=== PATIENT | female | born 1960 | race Caucasian/White ===

== ENCOUNTER 2016-10-01 08:20 | Day surgery (SDC) | payer OTHER ==
[2016-09-30 11:45] VITALS: BMI 18.7
[~2016-10-01] VITALS: Ht 165.1 cm; Wt 49.0 kg
[2016-10-01] VITALS (9 sets, daily range): BP systolic 106–134; BP diastolic 64–77; PULSE 66–75; RESP 8–21; Ht 165.1 cm; Wt 49.0 kg
[~2016-10-01 08:20] MED LIST: ASPI-664 PO; CIPRO 400 MG/200 ML D5W IVPB ONE; HYDR20TA19 PO; METH500T PO; RAMI10CA48 PO; SIMV5TAB50 PO
[2016-10-01] MEDS ORDERED: HYDR-902 PO (09:31)
[2016-10-01] MEDS ORDERED: OMEP20CA16 PO (09:31)
--- NOTE | 2016-10-01 09:43 | RADRPT ---
PROCEDURE: XR Chest. CLINICAL INDICATION: Preoperative TECHNIQUE: Single frontal chest x-ray. COMPARISON: None. FINDINGS: The lungs are clear of acute infiltrates, edema, effusions, or masses.. The cardiomediastinal silho uette is unremarkable. The osseous structures are intact. IMPRESSION: No acute cardiopulmonary disease. RPTAT: GG .Timothy Rodrigues MD, MD Date Time Electronically viewed and signed by .Timothy Rodrigues MD, MD on 10/01/2016 09:43 .L/
[2016-10-01] MEDS ORDERED: IOHEXOL 300MG/ML 30 ML BTL ONE (10:00)
[2016-10-01] MEDS ORDERED: MIDAZOLAM 1 MG/ML 2 ML INJ ONE (10:25)
[2016-10-01] MEDS ORDERED: FENTAnyl 50 MCG/ML VIAL ONE (10:26)
[2016-10-01] MEDS ORDERED: MEPERIDINE 25 MG INJ IV PRN (11:30)
[2016-10-01] MEDS ORDERED: DIPHENHYDRAMINE 50 MG INJ IV PRN (11:30)
[2016-10-01] MEDS ORDERED: ONDANSETRON 4 MG INJ IV PRN (11:30)
[2016-10-01] MEDS ORDERED: KETOROLAC 30 MG INJ IV ONE (11:30)
[2016-10-01] MEDS ORDERED: FENTAnyl 50 MCG/ML VIAL IV PRN (11:30)
[2016-10-01] MEDS ORDERED: LIDOCAINE 2% (SDV) 5 ML INJ ONE (12:14)
[2016-10-01] MEDS ORDERED: ROCURONIUM 50 MG INJ ONE (12:14)
[2016-10-01] MEDS ORDERED: PROPOFOL 20 ML ONE (12:14)
[2016-10-01] MEDS ORDERED: GLYCOPYRROLATE 0.4 MG INJ ONE (12:19)
[2016-10-01] MEDS ORDERED: ONDANSETRON 4 MG INJ ONE (12:19)
[2016-10-01] MEDS ORDERED: NEOSTIGMINE 3 MG/3 ML SYRINGE ONE (12:19)
[2016-10-01] MEDS: morphine (1 MG/ML) 10ML SYRINGE IV PRN ×2 (12:33→12:41)
--- NOTE | 2016-10-01 15:05 | RADRPT ---
PROCEDURE: Intraoperative imaging for ERCP with fluoroscopy. CLINICAL INDICATION: Right upper quadrant pain. Intraoperative. TECHNIQUE: Ninth images of the right upper quadrant of the abdomen were obtained in the operating room with an image intensifier. No radiologist was in attendance. Fluoroscopy time is unavailable. COMPARISON: 10/29/2015. FINDINGS: Images demonstrate the endoscope in position. Contrast was injected into the common bile duct. The common bile duct is dilated. No obstructing lesion is visualized. However, the distal duct is narr owed as seen previously. The cystic duct is patent. IMPRESSION: 1. ERCP as described above. RPTAT: QQ .Christiano Bah MD, MD Date Time Electronically viewed and signed by .Christiano Bah MD, MD on 10/01/2016 15:05 .R/
--- NOTE | 2016-10-01 19:02 | GILP ---
DATE OF PROCEDURE: PROCEDURE: ERCP, removal of the stent, SpyGlass biopsy, brushing, and placement of a stent, and als o balloon sweeping in order to remove the stone. INDICATION: A 56-year-old female undergoing this procedure for a stone fall on MRCP in the bile koffi t and also for the evaluation of the biliary stricture. The patient's CA19-9, which was normal 1 ye ar ago, has jumped to 401. The risk of the procedure, related and unrelated complications, anesthe tic risks, alternatives discussed. Informed consent was obtained. DESCRIPTION OF PROCEDURE: Patient was brought to the GI OR room 3, intubated and placed in a prone position, was given Indocin suppository and also Cipro, and after optimal sedation, the ERCP scope p assed with much ease into esophagus, advanced further down into stomach and duodenum. Two 10-[place] Citizen stents were removed in succession through the biopsy channel. Then, the bile duct was selectively c annulated. The distal part of the stricture visualized. It appeared clean and somewhat irregular. It was not a smooth stricture. At this point, we used a 12-mm balloon to sweep the bile duct. Harshad ething popped out, maybe a stone. But, after that, the whole biliary system was clean. The common d uct and the hepatic duct appeared dilated. Over the guidewire, we passed the SpyGlass, visualized t he common hepatic duct and bile duct. No stone was seen. The mucosa appeared normal. Higher, sanchez prabha, in the distal part of the bile duct, there were papillary projections identified. Five to 6 Sp y bites obtained and sent for analysis. After obtaining Spy bites, brushing was done, and after doi ng brushing, stent was deployed, 10-[place] Citizen, 5-cm. Total fluoro time was 7 seconds. Scope was remov ed with excellent patient tolerance. IMPRESSION: 1. Removal of two 10-[place] Citizen stents 1 x1. 2. Removal of probably stone from the bile duct with 12-mm balloon. 3. Irregular stricture in the distal part of the bile duct, probably 2 to 2.5 cm in length. 4. Spy bites obtained. 5. Papillary projection was visualized on SpyGlass. Rest of the common bile duct appeared normal. The mucosal lining was normal. 6. Brushing was done 7. Stent was successfully deployed, 10-[place] Citizen, 5 cm. PLAN: To review cytology and also the biopsy. I would prefer FISH study if the pathologist is angy ble of doing it. After reviewing all of this, will decide regarding the management, but I personall y feel patient needs the surgery, and I am going to refer her to hepatobiliary surgeon. Dictated By: LISETTE SANTOS/MICHEAL Conf#: [id number] DID#: [id number] CC: [facility];*EndCC*
== END 2016-10-01 13:40 | disposition home or self-care (01) ==
LOC: SDS 08:20
PROVIDERS: ATTEND Internal Medicine Gastroenterology
DX: K83.9 Disease of biliary tract, unspecified (principal); I25.10 Atherosclerotic heart disease of native coronary artery without angina pectoris; E78.5 Hyperlipidemia, unspecified; Z98.61 Coronary angioplasty status
CPT/HCPCS: 43277; 71010; 74330; 88104; 88305; 93005; C2617; J0744; J1885; J2250; J2270; J2405; J2710; J3010; Q9967; Z7512; Z7610

== ENCOUNTER 2017-04-13 08:59 | Day surgery (SDC) | payer OTHER ==
[2017-04-13] VITALS (9 sets, daily range): BP systolic 96–132; BP diastolic 69–81; PULSE 72–96; RESP 10–24; Ht 170.2 cm; Wt 52.3 kg
[~2017-04-13] VITALS: Ht 170.2 cm; Wt 52.3 kg
[~2017-04-13 08:59] MED LIST changes: -CIPRO 400 MG/200 ML D5W IVPB ONE; +HYDR-902 PO; -HYDR20TA19 PO; -METH500T PO; +OMEP20CA16 PO
[2017-04-13 10:17] LABS: BASOPHILS % 0.4 % (0.0-2.0); EOSINOPHILS % 0.4 % (0.0-7.0); HEMATOCRIT 35.8 % (37.0-47.0); HEMOGLOBIN 12.3 g/dl (12.0-16.0); LYMPHOCYTES # 1.6 10^3/ul (0.8-2.9); LYMPHOCYTES % 21.6 % (15.0-51.0); MEAN CORPUSCULAR HEMOGLOBIN 32.1 pg (29.0-33.0); MEAN CORPUSCULAR HGB CONC 34.4 g/dl (32.0-37.0); MEAN CORPUSCULAR VOLUME 93.5 fl (82.0-101.0); MEAN PLATELET VOLUME 8.9 fl (7.4-10.4); MONOCYTE # 0.5 10^3/ul (0.3-0.9); MONOCYTES % 6.4 % (0.0-11.0); NEUTROPHILS % 70.8 % (39.0-77.0); PLATELET COUNT 284 10^3/UL (140-415); RED BLOOD COUNT 3.83 10^6/ul (4.20-5.40); RED CELL DISTRIBUTION WIDTH 12.4 % (11.5-14.5); WHITE BLOOD COUNT 7.3 10^3/ul (4.8-10.8)
[2017-04-13] MEDS ORDERED: IOHEXOL 300MG/ML 30 ML BTL ONE ×2 (10:22→11:03)
--- NOTE | 2017-04-13 10:26 | HPN ---
Date/Time of Note Date/Time of Note DATE: 04/13/17 TIME: 10:26 Interval H&P Admission Note Pt. seen H&P reviewed: No system changes LISETTE CORTES MD Apr 13, 2017 10:26
[2017-04-13 10:44] LABS: CALCIUM 9.5 mg/dl (8.4-10.2); CREATININE 0.62 mg/dl (0.44-1.00); POTASSIUM 4.1 mmol/L (3.5-5.1)
--- NOTE | 2017-04-13 10:45 | RADRPT ---
PROCEDURE: XR Chest. CLINICAL INDICATION: PRE OP, SMOKER FOR 40 YRS 1 PACK DAILY TECHNIQUE: Single frontal view of the chest was obtained. COMPARISON: Chest x-ray from 10/01/2016 FINDINGS: The heart and mediastinum are within normal limits. The lungs are clear. There is no significant pleural effusion or pneumothorax. IMPRESSION: No acute disease. RPTAT: EE Physician Roger Date Time Electronically viewed and signed by Keshav Villa Physician on 04/13/2017 10:45 RA/
[2017-04-13] MEDS ORDERED: CIPROFLOXACIN 400MG/D5W 200 ML ONE (11:04)
[2017-04-13] MEDS ORDERED: FENTAnyl 50 MCG/ML VIAL ONE ×3 (11:06→11:47)
[2017-04-13] MEDS ORDERED: PROPOFOL 100 ML ONE (11:07)
[2017-04-13] MEDS ORDERED: LIDOCAINE 2% (SDV) 5 ML INJ ONE (12:44)
--- NOTE | 2017-04-13 12:49 | OPPN ---
Date/Time of Note Date/Time of Note DATE: 04/13/17 TIME: 12:47 Operative Report Preoperative Diagnosis Biliary stricture Postoperative Diagnosis Same Operation/Procedure Performed Spyglass Removal of the stone Brushing Placement of 2 stent 10 Togolese and a 7 Togolese Provider: LISETTE CORTES MD Anesthesia Type: MAC Estimated blood loss: none Transfusion Required: no Specimen: none Grafts/Implants: none Complications: no LISETTE CORTES MD Apr 13, 2017 12:49
[2017-04-13] MEDS ORDERED: DIPHENHYDRAMINE 50 MG INJ IV PRN (13:00)
[2017-04-13] MEDS ORDERED: OXYCODONE/ACETAMINOPHEN (5/325) TAB PO PRN ×2 (13:00)
[2017-04-13] MEDS ORDERED: hydrALAzine 20 MG INJ IV PRN (13:00)
[2017-04-13] MEDS ORDERED: ONDANSETRON 4 MG INJ IV PRN (13:00)
[2017-04-13] MEDS ORDERED: HYDROmorphONE (0.2 MG/ML) 10ML SYG IV PRN ×3 (13:00)
[2017-04-13] MEDS ORDERED: EPHEDrine SULFATE 50 MG/5 ML SYG IV PRN (13:00)
[2017-04-13] MEDS ORDERED: KETOROLAC 30 MG INJ IV PRN (13:00)
[2017-04-13] MEDS ORDERED: LABETALOL HCL 20MG INJ IV PRN (13:00)
[2017-04-13] MEDS ORDERED: FENTAnyl 50 MCG/ML VIAL IV PRN ×3 (13:00)
[2017-04-13] MEDS ORDERED: MEPERIDINE 25 MG INJ IV PRN (13:00)
--- NOTE | 2017-04-13 14:58 | RADRPT ---
PROCEDURE: X-ray fluoroscopy guidance CLINICAL INDICATION: Pain TECHNIQUE: Fluoroscopic guidance was utilized for intraoperative procedure. COMPARISON: None. FINDINGS: Fluoroscopic guidance was utilized for intraoperative procedure. 0.1 minute of fluoroscopy time was utilized for the procedure. 17 x-ray images were obtained during the procedure. No filling defects are identified in the common bile duct to suggest choledocholithiasis. IMPRESSION: X-ray fluoroscopic guidance utilized for intraoperative procedure. No choledocholithiasis. Please see procedure note details. RPTAT: EE Physician Roger Date Time Electronically viewed and signed by Physician Roger on 04/13/2017 14:57 RA/
--- NOTE | 2017-04-14 19:04 | GILP ---
DATE OF PROCEDURE: 04/13/2017 PROCEDURE: ERCP spy glass cytology, removal of the stone and stenting. IDENTIFICATION: This is a 56-year-old female, undergoing this procedure for biliary stricture. The patient has a history of a pancreatitis, and she is a heavy smoker. The purpose of this procedure is to evaluate the stricture, low pressing biopsy, make sure there is no malignancy, and, if necessary, deploy the stent. The risks of the procedure, related complications, anesthetic risk, and alternatives discussed, An informed consent was obtained. The patient was related complications like bleeding, perforation, and pancreatitis, all totally explained, which she understood and agreed. PROCEDURE IN DETAIL: The patient was brought to the GI lab, sedated by the anesthesiologist, Dr. Cardoza. The patient was placed in a prone position. She was given Indocin suppository. She also was given antibiotic. ERCP scope passed with much ease into the esophagus, advanced further down into the stomach, and duodenal ampulla identified. There was no stent seen. At this point, decided to do cholangiogram. No stent had migrated proximally. Cholangiogram was obtained. There was a stricture seen in the distal part of the bile duct about 2 cm in line with 12-mm balloon. Bile duct was swept multiple times. Small stone came out, witnessed by the staff nurses and the tractor technician. After searching the bile duct multiple times, the stricture was identified. The drainage was excellent. It was emptying it very well. We decided to do pressing. Vigorous pressing was done and sent for cytology. After pressing, we passed the spy glass into the bile duct. It was technically difficult to position the ERCP scope in the short position because of unstable duodenum, and it was falling back frequently into the bowel. So, with the long route, we could pass the spy glass and examine the bile duct in the distal part. I did not see any malignancy. The spy glass was then removed. Since the stricture was persistent, I decided to deploy 2 stents, 10-Albanian and 7-Albanian, each one in the length of 5 cm, successfully deployed, and the scope was removed with good patient tolerance. IMPRESSION: 1. Stricture in the distal part of the bile duct; appears to be a benign stricture. There is no evidence of malignancy. 2. We will review the breast cytology. 3. To my knowledge, CA 99 and CEA levels were all normal, but I will review when the patient comes to the office for follow-up. 4. The patient is concerned about the pancreatic cancer. In the past, the CT scan was negative. We will do a pancreatic- dedicated CT scan to make sure there is no pancreatic lesion. 5. We will keep the double stent for 6 months, and after that, I do not think the patient needs further stenting, because the drainage is good, and this appears to be chronic in nature. We will review her liver function test. Dictated By: Leighton De Oliveira MD /wanda/pat /Document#: [id number]
== END 2017-04-13 14:17 | disposition home or self-care (01) ==
LOC: SDS 08:59
PROVIDERS: ATTEND Internal Medicine Gastroenterology
DX: K83.1 Obstruction of bile duct (principal); K80.50 Calculus of bile duct without cholangitis or cholecystitis without obstruction
CPT/HCPCS: 43264; 43275; 71010; 74330; 80048; 85025; 88104; 88305; C2617; J0744; J2405; J3010; Q9967; Z7512; Z7610

== ENCOUNTER 2017-10-22 06:01 | Day surgery (SDC) | END 2017-10-22 10:55 | disposition home or self-care (01) ==

== ENCOUNTER → 2018-02-14 | Outpatient (CLI) | END | disposition home or self-care (01) ==

== ENCOUNTER → 2018-03-03 | Outpatient (CLI) | END | disposition home or self-care (01) ==

== ENCOUNTER → 2018-05-23 | Outpatient (CLI) | END | disposition home or self-care (01) ==

== ENCOUNTER → 2018-07-11 | Outpatient (CLI) | END | disposition home or self-care (01) ==

== ENCOUNTER → 2018-08-30 | Outpatient (CLI) | payer OTHER ==
[~2018-08-30] MED LIST changes: -ASPI-664 PO; +ASPI-817 PO; +HYDR-4011 PO; -HYDR-902 PO; -OMEP20CA16 PO; +SIMV5TAB14 PO; -SIMV5TAB50 PO
--- NOTE | 2018-08-30 18:41 | HKNOTE ---
DATE OF SERVICE: 08/30/2018 HISTORY OF PRESENT ILLNESS: Ms. Randle returned today for a complaint of right knee pain. She had a previous injury including left inferior pubic rami fracture sustained on 01/20/2018. She is complai teresa of continued right knee pain. The pain is intermittent. She is able to perform her activities of daily living. GAIT: Nonantalgic gait, reciprocal gait pattern. RIGHT KNEE EXAMINATION: Neutral alignment. Tender over the lateral joint line. Nontender over the medial joint line, 0 to 120 degrees range of motion. Negative anterior drawer, negative posterior dr awer, negative Terri, negative Sara's test. 5/5 quadriceps, tibialis anterior, gastric soleus. IMAGING: MRI of the right knee, there is a tear of the lateral meniscus, posterior horn junction. 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 IMPRESSION: A 58-year-old female with right knee posterior horn horizontal lateral meniscus tear. PLAN: We will request authorization for physical therapy of the right knee. She does not require pa in medications. She will follow up in 3 months. Dictated By: MAGGY SIEGEL/NTS Conf#: [id number] DID#: [id number]
== END | disposition home or self-care (01) ==
LOC: HKI 14:22
PROVIDERS: ATTEND Orthopaedic Surgery Adult Reconstructive Orthopaedic Surgery
DX: M23.251 Derangement of posterior horn of lateral meniscus due to old tear or injury, right knee (principal)
CPT/HCPCS: G0463

== ENCOUNTER → 2018-11-08 | Outpatient (CLI) | payer OTHER ==
--- NOTE | 2018-11-08 17:33 | RADRPT ---
PROCEDURE: XR Right Shoulder. CLINICAL INDICATION: Right shoulder pain. TECHNIQUE: Three views. Frontal internal rotation, frontal external rotation, and scapular Y-view. COMPARISON: No prior study is available for comparison. FINDINGS: There is no fracture or dislocation. The soft tissues are normal. Articular surfaces are intact. There is no lytic or blastic lesion. There is no radiopaque foreign body. IMPRESSION: 1. Normal images of the right shoulder. RPTAT: QQ .Christiano Bah MD, MD Date Time Electronically viewed and signed by .Christiano Bah MD, on 11/08/2018 17:32 .R/
--- NOTE | 2018-11-08 21:01 | HKNOTE ---
DATE OF SERVICE: 11/08/2018 CHIEF COMPLAINT: Right shoulder pain. HISTORY OF PRESENT ILLNESS: Ms. Randle is complaining of pain in the right shoulder. She denies any history of trauma. She states that the pain is intermittent. She has difficulty raising her arm. She denies any numbness or weakness. PHYSICAL EXAMINATION: Right shoulder: Tender over the AC joint, 180 degrees abduction, 180 degrees forward flexion, 90 deg ayaan external rotation, 90 degrees of internal rotation, 50 degrees of extension, 30 degrees of adduc tion. Negative Li, negative Neer's, negative belly press, negative liftoff test. IMAGING: X-rays right shoulder: There are degenerative changes of the AC joint. No fractures or di slocations. IMPRESSION: A 58-year-old female with right shoulder pain. PLAN: We will request authorization for right shoulder MRI to evaluate for rotator cuff tear. She w ill follow up within 6 weeks to go over the MRI results. Dictated By: MAGGY SIEGEL/MICHEAL Conf#: [id number] DID#: [id number]
== END | disposition home or self-care (01) ==
LOC: HKI 14:04
PROVIDERS: ATTEND Orthopaedic Surgery Adult Reconstructive Orthopaedic Surgery
DX: M25.511 Pain in right shoulder (principal)
CPT/HCPCS: 73030; Z7500; G0463

== ENCOUNTER 2019-02-02 07:42 | Day surgery (SDC) | payer OTHER ==
[~2019-02-02] VITALS: Ht 165.1 cm; Wt 54.1 kg
[2019-02-02] VITALS (15 sets, daily range): BP systolic 91–122; BP diastolic 58–72; PULSE 76–98; RESP 15–19; Ht 165.1 cm; Wt 54.1 kg
[~2019-02-02 07:42] MED LIST changes: +CEFAZOLIN 2 GM/50 ML (PMX) 50 ML IVPB ONE; +SOD CHLORIDE 0.9% 1,000 ML IV SCH
--- NOTE | 2019-02-02 09:35 | PREAC ---
Date/Time of Note Date/Time of Note DATE: 02/02/19 TIME: : Anesthesia Eval and Record Evaluation Time Pre-Procedure Interview DATE: 02/02/19 TIME: : Age 58 Sex female NPO: 8 hrs Preoperative diagnosis left breast cancer Planned procedure left partial mastectomy with sentinel lymph node biopsy Past Medical History Past Medical History: Includes Cardio: HTN, Dyslipidemia Pulm: Smoking Hx (1ppd cigarette, smoked today) Neuro: Other Musculoskeletal: Other (chronic back and RIGHT shoulder pain, takes 3 pills of Mentor daily for many years now. Osteoporosis. ) Surgery & Anesthesia Issues No known issue Meds Anticoagulation: Yes (last ASA dose 01/28/19) Beta Ernie within 24 hr: No Reason Beta Ernie not given: Pt. not on B-Ernie Reported Medications Hydrocodone/Acetaminophen (Mentor 5-325 Tablet) 1 Each Tablet, 1 EACH PO, TAB 10/22/17 Aspirin* (Aspirin* EC) 81 Mg Tablet.dr, 81 MG PO DAILY, TAB 10/28/15 Simvastatin* (Simvastatin*) 5 Mg Tablet, 20 MG PO QHS, #30 TAB 10/28/15 Ramipril (Ramipril) 10 Mg Capsule, 10 MG PO DAILY, CAP 10/28/15 Current Medications Sodium Chloride 1,000 ml @ 75 mls/hr [id number] IV ; Start 02/02/19 at 07:00 Meds reviewed: Yes Allergies Coded Allergies: Penicillins (Verified Allergy, Severe, RASH, 10/01/16) duloxetine (Unverified Allergy, Unknown, 04/13/17) methadone (Unverified Allergy, Unknown, 04/13/17) alendronate sodium (Verified Adverse Reaction, Unknown, LOCK JAW, 10/01/16) Allergies Reviewed: Yes Labs/Studies Labs Reviewed: Reviewed by anesthesiologist test: N/A Studies: ECG, CXR Pre-procedure Exam Airway: Adequate mouth opening, Adequate thyromental dist Mallampati: Mallampati II Teeth: Normal Lung: Normal Heart: Normal ASA Physical Status ASA physical status: 2 Emergency: None Planned Anesthetic General/MAC: LMA Planned Pain Management Parenteral pain med, Local by surgeon Pre-operative Attestations Prior to commencing anesthesia and surgery, the patient was re-evaluated, there was verification of: *The patient's identity *The results of appropriate recent lab work and preoperative vital signs *The above evaluation not changing prior to induction *Anesthetic plan, risk benefits, alternative and complications discussed with patient/family; questions answered; patient/family understands, accepts and wishes to proceed. CHANA FAGAN Feb 02, 2019 09:35
[2019-02-02] MEDS ORDERED: LIDOCAINE 2% (SDV) 5 ML INJ ONE (09:43)
[2019-02-02] MEDS ORDERED: CLINDAMYCIN 900 MG/D5W (PMX) 50 ML IVPB ONE (09:43)
[2019-02-02] MEDS ORDERED: PROPOFOL 20 ML ONE (09:43)
[2019-02-02] MEDS ORDERED: MIDAZOLAM 1 MG/ML 2 ML INJ ONE (09:43)
[2019-02-02] MEDS ORDERED: HYDROmorphONE 2 MG/ML SYG ONE (09:43)
[2019-02-02] MEDS ORDERED: FAT EMULSION 20% 250 ML IV ONE (09:43)
[2019-02-02] MEDS ORDERED: ISOSULFAN BLUE 1% 5 ML INJ SC ONE (10:23)
[2019-02-02] MEDS ORDERED: ONDANSETRON 4 MG INJ ONE (10:45)
[2019-02-02] MEDS ORDERED: DEXAMETHASONE 4 MG/ML 5 ML INJ ONE (10:45)
[2019-02-02] MEDS ORDERED: EPHEDrine 25 MG/5 ML SYG ONE (10:59)
[2019-02-02] MEDS ORDERED: PHENYLephrine (100 MCG/ML) 10ML SYG ONE (11:16)
[2019-02-02] MEDS ORDERED: hydrALAzine 20 MG INJ IV PRN (11:30)
[2019-02-02] MEDS ORDERED: MEPERIDINE 25 MG INJ IV PRN (11:30)
[2019-02-02] MEDS ORDERED: OXYCODONE/ACETAMINOPHEN (5/325) TAB PO PRN ×2 (11:30)
[2019-02-02] MEDS ORDERED: LABETALOL HCL 20MG INJ IV PRN (11:30)
[2019-02-02] MEDS ORDERED: MIDAZOLAM 1 MG/ML 2 ML INJ IV PRN (11:30)
[2019-02-02] MEDS ORDERED: ONDANSETRON 4 MG INJ IV PRN (11:30)
[2019-02-02] MEDS ORDERED: ALBUTEROL 0.083% (NEB) 2.5 MG/3 ML AMP HHN PRN (11:30)
[2019-02-02] MEDS ORDERED: HYDROmorphONE 1 MG/5 ML IV SYRINGE IV PRN ×3 (11:30)
--- NOTE | 2019-02-02 11:40 | SIPON ---
Date/Time of Note Date/Time of Note DATE: 02/02/19 TIME: 11:38 Operative Report Preoperative Diagnosis Invasive cancer left breast Postoperative Diagnosis Same Operation/Procedure Performed Left partial mastectomy and axillary dissection utilizing sentinel lymph node technique Surgeon see signature line operations and intelligence assistant Dr Jo Anesthesia: general Estimated blood loss: 0 - 10 ml's Transfusion Required none Specimen Left partial mastectomy specimen and sentinel lymph node with additional axillary nodes Grafts/Implants none Complications none SHANTELL WADE MD Feb 02, 2019 11:39
--- NOTE | 2019-02-02 11:58 | OPR ---
DATE OF OPERATION: 02/02/2019 PREOPERATIVE DIAGNOSIS: Invasive cancer, left breast. POSTOPERATIVE DIAGNOSIS: Invasive cancer, left breast. OPERATION PERFORMED: Left partial mastectomy and axillary dissection utilizing sentinel lymph node t echnique. ANESTHESIA: General. ANESTHESIOLOGIST: Nurse ground crew chief, Timothy Farrar. SURGEON: Joaquín Emery MD STOVE MECHANIC: Rohit Buck MD INDICATIONS FOR PROCEDURE: The patient is an unfortunate 58-year-old female who presented with a lef t breast mass at 1 o'clock location. Radiographic workup and biopsy revealed invasive cancer. She u nderwent MRI which did not reveal evidence of multicentric disease, with no evidence of left ax illary lymphadenopathy. The patient was counseled as to the risks, benefits of surgery. She consent ed and was scheduled for surgery. DESCRIPTION OF PROCEDURE: The patient was brought to the operating theater, placed under general ane sthesia. The left breast and axillary regions were prepped and draped in usual sterile fashion. Leila roximately 3 mL of 1% Lymphazurin blue dye were then injected peritumorally. The breast was gently m assaged for 12 minutes. At this point, a 3 to 4 cm incision was made in the left axillary hairline. Subcutaneous tissue was dissected with cautery. Additional dissection down through the clavipectora l fascia took place. A well-identified dye-stained lymphatic was traced to the sentinel node. There were at least 3 other lymph nodes associated with this node. These lymph nodes were meticulously di ssected using the LigaSure device. Intraoperative frozen section evaluation of the sentinel node was performed by attending pathologist, Dr. Nathen Rousseau, did not reveal evidence of metastatic disea se. Therefore, no further nodes were taken. The specimen was sent for permanent pathologic analysis . The wound was irrigated. Minimal bleeding was controlled with cautery, and the skin was then reap proximated with a 4-0 Vicryl suture in subcuticular fashion. Attention was then directed to performing the partial mastectomy. A curvilinear incision was made di rectly over the palpable mass in the upper outer quadrant of the breast. Subcutaneous tissue was dis sected with cautery. Skin edges were then elevated with skin hooks and wide circumferential dissecti on of the tissue associated with the palpable mass then took place using cautery. Dissection continu ed down to the pectoralis major fascia. Specimen was elevated, transected, oriented, and sent for gr oss analysis, again performed by attending pathologist, Dr. Nathen Rousseau. Dr. Rousseau stated john t the margins appeared to be grossly clear. Therefore, the specimen was sent for permanent pathologi c analysis. The wound was irrigated. Minimal bleeding was controlled with cautery. The skin was th en reapproximated with 4-0 Vicryl sutures in interrupted fashion, and final skin approximation took p lace with 5-0 PDS suture in subcuticular fashion. Dermabond was then applied to both wounds. The pa tient tolerated the procedure well. The estimated blood loss was 20 mL. There were no complications and the patient was transported in stable condition to the recovery room where circumferential compr ession dressing was applied. Dictated By: JOAQUÍN EMERY MD TL/MICHEAL Conf#: [id number] DID#: [id number] CC: ROHIT BUCK MD;*EndCC*
[2019-02-02] MEDS ORDERED: HYDROCODONE/APAP (7.5/325) TAB PO PRN (12:00)
[2019-02-02] MEDS ORDERED: FENTAnyl 50 MCG/ML VIAL ONE (12:09)
--- NOTE | 2019-02-02 13:40 | PAC ---
Date/Time of Note Date/Time of Note DATE: 02/02/19 TIME: 13:40 Post-Anesthesia Notes Post-Anesthesia Note Last documented vital signs Vital Signs Date Temp Pulse Resp B/P (MAP) Pulse Ox O2 O2 Flow FiO2 Time Delivery Rate 02/02/19 80 17 113/70 93 Room Air 13:13 (84) 02/02/19 2.0 12:48 02/02/19 98.2 12:13 Activity: WNL Respiratory function: WNL Cardiovascular function: WNL Mental status: Baseline Pain reasonably controlled: Yes Hydration appropriate: Yes Nausea/Vomiting absent: Yes CHANA FAGAN Feb 02, 2019 13:40
== END 2019-02-02 14:20 | disposition home or self-care (01) ==
LOC: SDS 07:42
PROVIDERS: ATTEND Surgery Surgical Oncology
DX: D05.12 Intraductal carcinoma in situ of left breast (principal); I10 Essential (primary) hypertension; E78.5 Hyperlipidemia, unspecified; F17.200 Nicotine dependence, unspecified, uncomplicated; Z79.82 Long term (current) use of aspirin
CPT/HCPCS: 19301; 38500; 38792; 88307; 88331; J1100; J1170; J2250; J2370; J2405; J3010; Z7512; Z7610; Q9968